=== PATIENT | female | born 1950 | race Two or more races ===

== ENCOUNTER → 2019-12-06 | Outpatient (CLI) | payer MEDICARE | END | disposition home or self-care (01) | LOC: STAR 14:04 | PROVIDERS: ATTEND Surgery Surgery of the Hand | DX: Z01.818 Encounter for other preprocedural examination (principal); M85.3 Osteitis condensans; G56.01 Carpal tunnel syndrome, right upper limb; I21.09 ST elevation (STEMI) myocardial infarction involving other coronary artery of anterior wall | CPT/HCPCS: 93005 ==

== ENCOUNTER 2019-12-12 10:35 | Day surgery (SDC) | payer MEDICARE ==
[~2019-12-12] VITALS: Ht 160 cm; Wt 70.2 kg
[2019-12-12] MEDS ORDERED: CHLORHEXIDINE 15 ML UDC MM STA (10:53)
[2019-12-12] MEDS ORDERED: LACTATED RINGERS 1,000 ML IV ONE (10:53)
[2019-12-12] MEDS ORDERED: LIDOCAINE-MPF 1%, 2ML INFIL STA (10:53)
[2019-12-12] MEDS ORDERED: CHLORHEXIDINE 15 ML UDC ONE (10:56)
[2019-12-12 11:21] VITALS: BP 134/79
[2019-12-12] MEDS ORDERED: FENTANYL PF 100 MCG/2ML ONE (11:47)
[2019-12-12] MEDS ORDERED: LIDOCAINE 1%, 20ML ONE (11:48)
[2019-12-12] MEDS ORDERED: BUPIVACAINE/PF 0.5% ONE (11:48)
[2019-12-12] MEDS ORDERED: ROCURONIUM 10MG/ML,5ML ONE (11:49)
[2019-12-12] MEDS ORDERED: PROPOFOL 10 MG/ML, 20ML ONE (11:49)
[2019-12-12] MEDS ORDERED: SUCCINYLCHOLINE 20 MG/ML, 10ML ONE (11:49)
[2019-12-12] MEDS ORDERED: DEXAMETHASONE 4 MG/ML, 1ML ONE ×2 (11:49→12:24)
[2019-12-12] MEDS ORDERED: ONDANSETRON 2MG/ML, 2ML ONE (12:24)
[2019-12-12] MEDS ORDERED: MIDAZOLAM 1 MG/ML, 2ML ONE (12:41)
[2019-12-12] MEDS ORDERED: DIAZEPAM 5 MG/ML, 2ML IVPush PRN (13:00)
[2019-12-12] MEDS ORDERED: MIDAZOLAM 1 MG/ML, 2ML IV PRN (13:00)
[2019-12-12] MEDS ORDERED: LABETALOL 5MG/ML, 20ML IV PRN (13:00)
[2019-12-12] MEDS ORDERED: PROMETHAZINE 25 MG/ML, 1ML IVPush PRN (13:00)
[2019-12-12] MEDS ORDERED: DIPHENHYDRAMINE 50 MG/ML, 1ML IVPush PRN (13:00)
[2019-12-12] MEDS ORDERED: ACETAMINOPHEN 325 MG TABLET PO PRN (13:00)
[2019-12-12] MEDS ORDERED: ALBUTEROL SULFATE 2.5 MG/3 ML NPPB PRN (13:00)
[2019-12-12] MEDS ORDERED: OXYcodone 5 MG/5 ML ORAL.SOL UDC PO PRN (13:00)
[2019-12-12] MEDS ORDERED: hydrALAzine 20 MG/ML, 1ML IV PRN (13:00)
[2019-12-12] MEDS ORDERED: ONDANSETRON 2MG/ML, 2ML IVPush PRN (13:00)
[2019-12-12] MEDS ORDERED: EPHEDRINE 50 MG/ML, 1ML IVPush PRN (13:00)
[2019-12-12] MEDS ORDERED: MEPERIDINE/PF 25MG/0.5ML IVPush PRN (13:00)
[2019-12-12] MEDS ORDERED: PROMETHAZINE 12.5 MG SUPP PR PRN (13:00)
[2019-12-12] MEDS ORDERED: FENTANYL PF 100 MCG/2ML IV PRN (13:00)
[2019-12-12] MEDS ORDERED: HYDROmorphone 1 MG/ML, 1ML INJ IVPush PRN (13:00)
== END 2019-12-12 15:50 | disposition home or self-care (01) ==
LOC: OUT 10:35
PROVIDERS: ATTEND Surgery Surgery of the Hand
DX: G56.01 Carpal tunnel syndrome, right upper limb (principal); M65.341 Trigger finger, right ring finger
CPT/HCPCS: 26055; 64721; J0330; J1100; J2250; J2405; J2704; J3010; J7120; U0001